=== PATIENT | male | born 1950 | race Caucasian/White ===

== ENCOUNTER 2021-12-25 08:37 | Inpatient (IN) | payer MEDICARE, BC ==
[2021-12-25] MEDS ORDERED: Triamcinolone Acetonide 0.1% Crm 15 GM Tube TOP PRN (14:42)
[2021-12-25] MEDS ORDERED: Glucagon,Human Recombinant 1 MG Vial IM PRN (14:42)
[2021-12-25] MEDS ORDERED: 50% Dextrose in Water 50 ML Syringe IVPUSH PRN (14:42)
[2021-12-25] MEDS ORDERED: Ampicillin/Sulbactam Na 3 GM Vial IV SCH (14:45)
[2021-12-25] MEDS: Sodium Chloride 0.9% 10 ML Syringe FLUSH PRN (16:35)
[2021-12-25] MEDS: Ampicillin/Sulbactam Na 3 GM in Sodium Chloride 0.9% 100 ML IV SCH (16:36)
[2021-12-25] MEDS: Terazosin 1 MG Cap PO SCH (20:35)
[2021-12-25] MEDS: Cyclobenzaprine 10 MG Tab PO PRN (20:36)
[2021-12-25] MEDS: Metoprolol Succinate 50 MG Tab.ER PO SCH (20:36)
[2021-12-25] MEDS: LIDOCAINE PATCH TRDERM SCH (22:00)
[2021-12-25] MEDS: Acetaminophen 500 MG Tab PO PRN (22:30)
[2021-12-26] MEDS: Levothyroxine 100 MCG Tab PO SCH (05:38)
[2021-12-26] MEDS ORDERED: Warfarin Sliding Scale PO SCH (09:00)
[2021-12-26] MEDS ORDERED: Insulin Glargine,Human Rec. Analog 100 Units/ML 3 ML Pen SUBCUT SCH (09:00)
[2021-12-26] MEDS: Metoprolol Succinate 50 MG Tab.ER PO SCH ×2 (09:08→21:23)
[2021-12-26] MEDS: Allopurinol 100 MG Tab PO SCH (09:09)
[2021-12-26] MEDS: Terazosin 1 MG Cap PO SCH ×2 (09:09→21:23)
[2021-12-26] MEDS: Calcitriol 0.25 MCG Cap PO SCH (09:09)
[2021-12-26] MEDS: Ergocalciferol (Vitamin D2) 1.25 MG Cap PO SCH (09:09)
[2021-12-26] MEDS: Bumetanide 2 MG Tab PO SCH (09:09)
[2021-12-26] MEDS: Fluticasone NASAL Spray 16 GM Bottle NASBOTH SCH (09:10)
[2021-12-26] MEDS: Cyclobenzaprine 10 MG Tab PO PRN ×3 (09:12→21:24)
[2021-12-26] MEDS: Lidocaine 4% 1 each Patch TOP SCH (09:15)
[2021-12-26] MEDS: Acetaminophen 500 MG Tab PO PRN ×2 (09:24→16:41)
[2021-12-26] MEDS ORDERED: Insulin Glargine,Human Rec. Analog 100 Units/ML 3 ML Pen SUBCUT ONE (09:32)
[2021-12-26] MEDS: Insulin Glargine,Human Rec. Analog 100 Units/ML 3 ML Pen SUBCUT SCH (09:35)
[2021-12-26] MEDS: traMADol 50 MG Tab PO PRN (11:28)
[2021-12-26] MEDS: Sodium Chloride 0.9% 10 ML Syringe FLUSH PRN ×3 (15:19→16:20)
[2021-12-26] MEDS: Ampicillin/Sulbactam Na 3 GM in Sodium Chloride 0.9% 100 ML IV SCH (15:20)
[2021-12-26] MEDS ORDERED: Warfarin 5 MG Tab PO ONE (16:00)
[2021-12-26] MEDS: LIDOCAINE PATCH TRDERM SCH (21:25)
[2021-12-27] MEDS: Levothyroxine 100 MCG Tab PO SCH (06:03)
[2021-12-27] MEDS: Insulin Glargine,Human Rec. Analog 100 Units/ML 3 ML Pen SUBCUT SCH (09:04)
[2021-12-27] MEDS: Lidocaine 4% 1 each Patch TOP SCH (09:09)
[2021-12-27] MEDS: Fluticasone NASAL Spray 16 GM Bottle NASBOTH SCH (09:10)
[2021-12-27] MEDS: Bumetanide 2 MG Tab PO SCH (09:10)
[2021-12-27] MEDS: Metoprolol Succinate 50 MG Tab.ER PO SCH ×2 (09:11→21:05)
[2021-12-27] MEDS: Terazosin 1 MG Cap PO SCH ×2 (09:11→21:02)
[2021-12-27] MEDS: Calcitriol 0.25 MCG Cap PO SCH (09:12)
[2021-12-27] MEDS: Allopurinol 100 MG Tab PO SCH (09:12)
[2021-12-27] MEDS: traMADol 50 MG Tab PO PRN ×3 (09:13→21:29)
[2021-12-27] MEDS: Cyclobenzaprine 10 MG Tab PO PRN ×2 (09:14→21:09)
[2021-12-27] MEDS: Ampicillin/Sulbactam Na 3 GM in Sodium Chloride 0.9% 100 ML IV SCH (15:30)
[2021-12-27] MEDS: Sodium Chloride 0.9% 10 ML Syringe FLUSH PRN (15:35)
[2021-12-27] MEDS ORDERED: Warfarin 5 MG Tab PO ONE (16:00)
[2021-12-27] MEDS: LIDOCAINE PATCH TRDERM SCH (21:07)
[2021-12-28] MEDS: Levothyroxine 100 MCG Tab PO SCH (06:42)
[2021-12-28] MEDS: Lidocaine 4% 1 each Patch TOP SCH (08:48)
[2021-12-28] MEDS: Insulin Glargine,Human Rec. Analog 100 Units/ML 3 ML Pen SUBCUT SCH (08:49)
[2021-12-28] MEDS: Fluticasone NASAL Spray 16 GM Bottle NASBOTH SCH (08:49)
[2021-12-28] MEDS: Bumetanide 2 MG Tab PO SCH (08:49)
[2021-12-28] MEDS: Terazosin 1 MG Cap PO SCH ×2 (08:49→20:03)
[2021-12-28] MEDS: Metoprolol Succinate 50 MG Tab.ER PO SCH ×2 (08:50→20:03)
[2021-12-28] MEDS: Calcitriol 0.25 MCG Cap PO SCH (08:50)
[2021-12-28] MEDS: Allopurinol 100 MG Tab PO SCH (08:50)
[2021-12-28] MEDS: Cyclobenzaprine 10 MG Tab PO PRN ×2 (09:27→20:49)
[2021-12-28] MEDS: traMADol 50 MG Tab PO PRN (12:55)
[2021-12-28] MEDS: Ampicillin/Sulbactam Na 3 GM in Sodium Chloride 0.9% 100 ML IV SCH (15:03)
[2021-12-28] MEDS ORDERED: Warfarin 5 MG Tab PO ONE (16:00)
[2021-12-28] MEDS: Sodium Chloride 0.9% 10 ML Syringe FLUSH PRN (16:04)
[2021-12-28] MEDS: Acetaminophen 500 MG Tab PO PRN (20:46)
[2021-12-28] MEDS: LIDOCAINE PATCH TRDERM SCH (20:56)
[2021-12-29] MEDS: Levothyroxine 100 MCG Tab PO SCH (06:06)
[2021-12-29] MEDS: Cyclobenzaprine 10 MG Tab PO PRN ×3 (06:37→23:27)
[2021-12-29] MEDS: Metoprolol Succinate 50 MG Tab.ER PO SCH ×2 (09:50→20:11)
[2021-12-29] MEDS: Allopurinol 100 MG Tab PO SCH (09:50)
[2021-12-29] MEDS: Calcitriol 0.25 MCG Cap PO SCH (09:50)
[2021-12-29] MEDS: Terazosin 1 MG Cap PO SCH ×2 (09:50→20:11)
[2021-12-29] MEDS: Bumetanide 2 MG Tab PO SCH (09:50)
[2021-12-29] MEDS: Insulin Glargine,Human Rec. Analog 100 Units/ML 3 ML Pen SUBCUT SCH (09:51)
[2021-12-29] MEDS: Fluticasone NASAL Spray 16 GM Bottle NASBOTH SCH (09:51)
[2021-12-29] MEDS: Lidocaine 4% 1 each Patch TOP SCH (09:51)
[2021-12-29] MEDS: Ampicillin/Sulbactam Na 3 GM in Sodium Chloride 0.9% 100 ML IV SCH (15:20)
[2021-12-29] MEDS: Sodium Chloride 0.9% 10 ML Syringe FLUSH PRN ×2 (15:21→16:32)
[2021-12-29] MEDS ORDERED: Warfarin 5 MG Tab PO SCH (16:00)
[2021-12-29] MEDS: LIDOCAINE PATCH TRDERM SCH (20:45)
[2021-12-29] MEDS: Acetaminophen 500 MG Tab PO PRN (21:23)
[2021-12-30] MEDS: traMADol 50 MG Tab PO PRN (02:03)
[2021-12-30] MEDS: Levothyroxine 100 MCG Tab PO SCH (06:04)
[2021-12-30] MEDS: Acetaminophen 500 MG Tab PO PRN ×2 (08:25→17:19)
[2021-12-30] MEDS: Cyclobenzaprine 10 MG Tab PO PRN ×3 (08:27→23:45)
[2021-12-30] MEDS: Calcitriol 0.25 MCG Cap PO SCH (08:33)
[2021-12-30] MEDS: Bumetanide 2 MG Tab PO SCH (08:33)
[2021-12-30] MEDS: Terazosin 1 MG Cap PO SCH ×2 (08:34→20:59)
[2021-12-30] MEDS: Allopurinol 100 MG Tab PO SCH (08:34)
[2021-12-30] MEDS: Fluticasone NASAL Spray 16 GM Bottle NASBOTH SCH (08:35)
[2021-12-30] MEDS: Metoprolol Succinate 50 MG Tab.ER PO SCH ×2 (08:37→21:02)
[2021-12-30] MEDS: Insulin Glargine,Human Rec. Analog 100 Units/ML 3 ML Pen SUBCUT SCH (08:38)
[2021-12-30] MEDS: Lidocaine 4% 1 each Patch TOP SCH (08:44)
[2021-12-30] MEDS: Ampicillin/Sulbactam Na 3 GM in Sodium Chloride 0.9% 100 ML IV SCH (15:28)
[2021-12-30] MEDS ORDERED: Warfarin 5 MG, Warfarin 2.5 MG PO ONE ×2 (16:00)
[2021-12-30] MEDS: Calcium Acetate 667 MG Cap PO SCH (17:59)
[2021-12-30] MEDS: LIDOCAINE PATCH TRDERM SCH (21:02)
[2021-12-31] MEDS: Levothyroxine 100 MCG Tab PO SCH (06:08)
[2021-12-31] MEDS: Calcium Acetate 667 MG Cap PO SCH ×3 (09:48→17:53)
[2021-12-31] MEDS: Bumetanide 2 MG Tab PO SCH (09:49)
[2021-12-31] MEDS: Metoprolol Succinate 50 MG Tab.ER PO SCH ×2 (09:50→20:40)
[2021-12-31] MEDS: Calcitriol 0.25 MCG Cap PO SCH (09:50)
[2021-12-31] MEDS: Allopurinol 100 MG Tab PO SCH (09:57)
[2021-12-31] MEDS: Fluticasone NASAL Spray 16 GM Bottle NASBOTH SCH (09:57)
[2021-12-31] MEDS: Insulin Glargine,Human Rec. Analog 100 Units/ML 3 ML Pen SUBCUT SCH (09:58)
[2021-12-31] MEDS: Lidocaine 4% 1 each Patch TOP SCH (09:58)
[2021-12-31] MEDS: Terazosin 1 MG Cap PO SCH ×2 (10:05→20:38)
[2021-12-31] MEDS: Acetaminophen 500 MG Tab PO PRN (10:19)
[2021-12-31] MEDS: Cyclobenzaprine 10 MG Tab PO PRN ×2 (10:20→20:37)
[2021-12-31] MEDS: Ampicillin/Sulbactam Na 3 GM in Sodium Chloride 0.9% 100 ML IV SCH (15:30)
[2021-12-31] MEDS: Sodium Chloride 0.9% 10 ML Syringe FLUSH PRN ×2 (15:30→16:30)
[2021-12-31] MEDS ORDERED: Warfarin 5 MG, Warfarin 2.5 MG PO ONE ×2 (16:00)
[2021-12-31] MEDS: LIDOCAINE PATCH TRDERM SCH (20:40)
[2022-01-01] MEDS: Levothyroxine 100 MCG Tab PO SCH (06:21)
[2022-01-01] MEDS: Bumetanide 2 MG Tab PO SCH (09:36)
[2022-01-01] MEDS: Lidocaine 4% 1 each Patch TOP SCH (09:36)
[2022-01-01] MEDS: Fluticasone NASAL Spray 16 GM Bottle NASBOTH SCH (09:36)
[2022-01-01] MEDS: Calcium Acetate 667 MG Cap PO SCH ×3 (09:37→17:37)
[2022-01-01] MEDS: Insulin Glargine,Human Rec. Analog 100 Units/ML 3 ML Pen SUBCUT SCH (09:38)
[2022-01-01] MEDS: Terazosin 1 MG Cap PO SCH ×2 (09:38→20:31)
[2022-01-01] MEDS: Allopurinol 100 MG Tab PO SCH (09:39)
[2022-01-01] MEDS: Calcitriol 0.25 MCG Cap PO SCH (09:39)
[2022-01-01] MEDS: Metoprolol Succinate 50 MG Tab.ER PO SCH ×2 (09:39→20:31)
[2022-01-01] MEDS: Cyclobenzaprine 10 MG Tab PO PRN ×3 (09:40→21:30)
[2022-01-01] MEDS: Sodium Chloride 0.9% 10 ML Syringe FLUSH PRN (15:26)
[2022-01-01] MEDS: Ampicillin/Sulbactam Na 3 GM in Sodium Chloride 0.9% 100 ML IV SCH (15:26)
[2022-01-01] MEDS ORDERED: Warfarin 5 MG Tab PO ONE (16:00)
[2022-01-01] MEDS: LIDOCAINE PATCH TRDERM SCH (21:28)
[2022-01-02] MEDS: traMADol 50 MG Tab PO PRN ×2 (02:05→21:59)
[2022-01-02] MEDS: Levothyroxine 100 MCG Tab PO SCH (06:46)
[2022-01-02] MEDS: Calcitriol 0.25 MCG Cap PO SCH (08:44)
[2022-01-02] MEDS: Terazosin 1 MG Cap PO SCH ×2 (08:44→21:43)
[2022-01-02] MEDS: Bumetanide 2 MG Tab PO SCH (08:44)
[2022-01-02] MEDS: Ergocalciferol (Vitamin D2) 1.25 MG Cap PO SCH (08:44)
[2022-01-02] MEDS: Allopurinol 100 MG Tab PO SCH (08:51)
[2022-01-02] MEDS: Metoprolol Succinate 50 MG Tab.ER PO SCH ×2 (08:51→21:47)
[2022-01-02] MEDS: Cyclobenzaprine 10 MG Tab PO PRN (08:51)
[2022-01-02] MEDS: Acetaminophen 500 MG Tab PO PRN ×2 (08:52→21:57)
[2022-01-02] MEDS: Calcium Acetate 667 MG Cap PO SCH ×3 (09:02→17:47)
[2022-01-02] MEDS: Fluticasone NASAL Spray 16 GM Bottle NASBOTH SCH (09:03)
[2022-01-02] MEDS: Lidocaine 4% 1 each Patch TOP SCH (09:03)
[2022-01-02] MEDS: Insulin Glargine,Human Rec. Analog 100 Units/ML 3 ML Pen SUBCUT SCH (09:05)
[2022-01-02] MEDS: Sodium Chloride 0.9% 10 ML Syringe FLUSH PRN ×2 (15:43→17:07)
[2022-01-02] MEDS: Ampicillin/Sulbactam Na 3 GM in Sodium Chloride 0.9% 100 ML IV SCH (15:43)
[2022-01-02] MEDS ORDERED: Warfarin 5 MG, Warfarin 2.5 MG PO ONE ×2 (16:00)
[2022-01-02] MEDS: LIDOCAINE PATCH TRDERM SCH (21:46)
[2022-01-03] MEDS: Levothyroxine 100 MCG Tab PO SCH (05:03)
[2022-01-03] MEDS: Calcium Acetate 667 MG Cap PO SCH ×3 (09:03→18:57)
[2022-01-03] MEDS: Lidocaine 4% 1 each Patch TOP SCH (09:03)
[2022-01-03] MEDS: Bumetanide 2 MG Tab PO SCH (09:04)
[2022-01-03] MEDS: Fluticasone NASAL Spray 16 GM Bottle NASBOTH SCH (09:04)
[2022-01-03] MEDS: Terazosin 1 MG Cap PO SCH ×2 (09:04→20:38)
[2022-01-03] MEDS: Insulin Glargine,Human Rec. Analog 100 Units/ML 3 ML Pen SUBCUT SCH (09:08)
[2022-01-03] MEDS: Allopurinol 100 MG Tab PO SCH (09:09)
[2022-01-03] MEDS: Metoprolol Succinate 50 MG Tab.ER PO SCH ×2 (09:09→20:39)
[2022-01-03] MEDS: Calcitriol 0.25 MCG Cap PO SCH (09:09)
[2022-01-03] MEDS: predniSONE 20 MG Tab PO SCH (11:40)
[2022-01-03] MEDS: Ampicillin/Sulbactam Na 3 GM in Sodium Chloride 0.9% 100 ML IV SCH (15:30)
[2022-01-03] MEDS: Sodium Chloride 0.9% 10 ML Syringe FLUSH PRN ×2 (15:34→16:37)
[2022-01-03] MEDS ORDERED: Warfarin 5 MG Tab PO ONE (16:00)
[2022-01-03] MEDS: Acetaminophen 500 MG Tab PO PRN (20:39)
[2022-01-03] MEDS: LIDOCAINE PATCH TRDERM SCH (20:39)
[2022-01-03] MEDS: traMADol 50 MG Tab PO PRN (20:40)
[2022-01-04] MEDS: Levothyroxine 100 MCG Tab PO SCH (06:00)
[2022-01-04] MEDS: Calcium Acetate 667 MG Cap PO SCH ×3 (08:52→17:22)
[2022-01-04] MEDS: predniSONE 20 MG Tab PO SCH (08:53)
[2022-01-04] MEDS: Lidocaine 4% 1 each Patch TOP SCH (08:54)
[2022-01-04] MEDS: Fluticasone NASAL Spray 16 GM Bottle NASBOTH SCH (08:54)
[2022-01-04] MEDS: Bumetanide 2 MG Tab PO SCH (08:54)
[2022-01-04] MEDS: Terazosin 1 MG Cap PO SCH ×2 (08:55→20:46)
[2022-01-04] MEDS: Metoprolol Succinate 50 MG Tab.ER PO SCH ×2 (08:56→20:46)
[2022-01-04] MEDS: Calcitriol 0.25 MCG Cap PO SCH (08:56)
[2022-01-04] MEDS: Insulin Glargine,Human Rec. Analog 100 Units/ML 3 ML Pen SUBCUT SCH (08:57)
[2022-01-04] MEDS: Allopurinol 300 MG Tab PO SCH (08:57)
[2022-01-04] MEDS: Acetaminophen 500 MG Tab PO PRN ×2 (08:58→20:51)
[2022-01-04] MEDS: Ampicillin/Sulbactam Na 3 GM in Sodium Chloride 0.9% 100 ML IV SCH (15:38)
[2022-01-04] MEDS ORDERED: Warfarin 5 MG Tab PO ONE (16:00)
[2022-01-04] MEDS: Sodium Chloride 0.9% 10 ML Syringe FLUSH PRN (16:36)
[2022-01-04] MEDS: LIDOCAINE PATCH TRDERM SCH (20:47)
[2022-01-04] MEDS: traMADol 50 MG Tab PO PRN (22:00)
[2022-01-05] MEDS: Levothyroxine 100 MCG Tab PO SCH (05:23)
[2022-01-05] MEDS: Insulin Glargine,Human Rec. Analog 100 Units/ML 3 ML Pen SUBCUT SCH (08:33)
[2022-01-05] MEDS: Lidocaine 4% 1 each Patch TOP SCH (08:34)
[2022-01-05] MEDS: Calcitriol 0.25 MCG Cap PO SCH (08:35)
[2022-01-05] MEDS: Calcium Acetate 667 MG Cap PO SCH ×3 (08:35→17:08)
[2022-01-05] MEDS: Bumetanide 2 MG Tab PO SCH (08:35)
[2022-01-05] MEDS: Terazosin 1 MG Cap PO SCH ×2 (08:35→21:17)
[2022-01-05] MEDS: Fluticasone NASAL Spray 16 GM Bottle NASBOTH SCH (08:36)
[2022-01-05] MEDS: predniSONE 20 MG Tab PO SCH (08:36)
[2022-01-05] MEDS: Allopurinol 300 MG Tab PO SCH (08:36)
[2022-01-05] MEDS: Metoprolol Succinate 50 MG Tab.ER PO SCH ×2 (08:36→21:18)
[2022-01-05] MEDS: traMADol 50 MG Tab PO PRN (08:48)
[2022-01-05] MEDS: Ampicillin/Sulbactam Na 3 GM in Sodium Chloride 0.9% 100 ML IV SCH (14:33)
[2022-01-05] MEDS: Sodium Chloride 0.9% 10 ML Syringe FLUSH PRN (14:34)
[2022-01-05] MEDS ORDERED: Warfarin 5 MG Tab PO ONE (16:00)
[2022-01-05] MEDS: Cyclobenzaprine 10 MG Tab PO PRN (21:18)
[2022-01-05] MEDS: LIDOCAINE PATCH TRDERM SCH (21:18)
[2022-01-05] MEDS: Acetaminophen 500 MG Tab PO PRN (21:19)
[2022-01-06] MEDS: Levothyroxine 100 MCG Tab PO SCH (05:03)
[2022-01-06] MEDS: Calcium Acetate 667 MG Cap PO SCH ×3 (08:28→17:32)
[2022-01-06] MEDS: Terazosin 1 MG Cap PO SCH ×2 (08:29→21:14)
[2022-01-06] MEDS: Calcitriol 0.25 MCG Cap PO SCH (08:29)
[2022-01-06] MEDS: Lidocaine 4% 1 each Patch TOP SCH (08:29)
[2022-01-06] MEDS: Fluticasone NASAL Spray 16 GM Bottle NASBOTH SCH (08:30)
[2022-01-06] MEDS: Metoprolol Succinate 50 MG Tab.ER PO SCH ×2 (08:30→21:15)
[2022-01-06] MEDS: Allopurinol 300 MG Tab PO SCH (08:31)
[2022-01-06] MEDS: Bumetanide 2 MG Tab PO SCH (08:31)
[2022-01-06] MEDS: predniSONE 20 MG Tab PO SCH (08:32)
[2022-01-06] MEDS: Insulin Glargine,Human Rec. Analog 100 Units/ML 3 ML Pen SUBCUT SCH (08:35)
[2022-01-06] MEDS: Acetaminophen 500 MG Tab PO PRN ×2 (12:25→21:18)
[2022-01-06] MEDS ORDERED: Ampicillin/Sulbactam Na 3 GM in Sodium Chloride 0.9% 100 ML IV SCH (13:30)
[2022-01-06] MEDS: Sodium Chloride 0.9% 10 ML Syringe FLUSH PRN ×2 (14:28→15:48)
[2022-01-06] MEDS: Ampicillin/Sulbactam Na 3 GM in Sodium Chloride 0.9% 100 ML IV SCH (14:29)
[2022-01-06] MEDS ORDERED: Warfarin 2.5 MG Tab PO ONE (16:00)
[2022-01-06] MEDS: Cyclobenzaprine 10 MG Tab PO PRN (21:16)
[2022-01-06] MEDS: LIDOCAINE PATCH TRDERM SCH (21:18)
[2022-01-07] MEDS: Levothyroxine 100 MCG Tab PO SCH (06:20)
[2022-01-07] MEDS: Bumetanide 2 MG Tab PO SCH (09:29)
[2022-01-07] MEDS: Terazosin 1 MG Cap PO SCH ×2 (09:30→22:09)
[2022-01-07] MEDS: Calcium Acetate 667 MG Cap PO SCH ×3 (09:30→17:29)
[2022-01-07] MEDS: Metoprolol Succinate 50 MG Tab.ER PO SCH ×2 (09:30→22:08)
[2022-01-07] MEDS: Calcitriol 0.25 MCG Cap PO SCH (09:30)
[2022-01-07] MEDS: Fluticasone NASAL Spray 16 GM Bottle NASBOTH SCH (09:31)
[2022-01-07] MEDS: Lidocaine 4% 1 each Patch TOP SCH (09:31)
[2022-01-07] MEDS: Insulin Glargine,Human Rec. Analog 100 Units/ML 3 ML Pen SUBCUT SCH (09:32)
[2022-01-07] MEDS: predniSONE 20 MG Tab PO SCH (09:32)
[2022-01-07] MEDS: Allopurinol 300 MG Tab PO SCH (09:32)
[2022-01-07] MEDS: Cyclobenzaprine 10 MG Tab PO PRN ×2 (09:33→22:10)
[2022-01-07] MEDS: Sodium Chloride 0.9% 10 ML Syringe FLUSH PRN (12:40)
[2022-01-07] MEDS ORDERED: Ampicillin/Sulbactam Na 3 GM in Sodium Chloride 0.9% 100 ML IV SCH (13:00)
[2022-01-07] MEDS ORDERED: Warfarin 5 MG, Warfarin 2.5 MG PO SCH ×2 (16:00)
[2022-01-07] MEDS: LIDOCAINE PATCH TRDERM SCH (22:09)
[2022-01-08] MEDS: Acetaminophen 500 MG Tab PO PRN (06:47)
[2022-01-08] MEDS: Cyclobenzaprine 10 MG Tab PO PRN (06:48)
[2022-01-08] MEDS: Levothyroxine 100 MCG Tab PO SCH (06:48)
[2022-01-08] MEDS: Calcium Acetate 667 MG Cap PO SCH ×2 (08:26→11:00)
[2022-01-08] MEDS: Lidocaine 4% 1 each Patch TOP SCH (08:26)
[2022-01-08] MEDS: Allopurinol 300 MG Tab PO SCH (08:26)
[2022-01-08] MEDS: Calcitriol 0.25 MCG Cap PO SCH (08:27)
[2022-01-08] MEDS: Metoprolol Succinate 50 MG Tab.ER PO SCH (08:27)
[2022-01-08] MEDS: Terazosin 1 MG Cap PO SCH (08:27)
[2022-01-08] MEDS: Insulin Glargine,Human Rec. Analog 100 Units/ML 3 ML Pen SUBCUT SCH (08:27)
[2022-01-08] MEDS: Fluticasone NASAL Spray 16 GM Bottle NASBOTH SCH (08:27)
[2022-01-08] MEDS: Bumetanide 2 MG Tab PO SCH (08:27)
[2022-01-08] MEDS ORDERED: Nystatin Topical Powder 15 GM Bottle TOP SCH (10:15)
[2022-01-08] MEDS ORDERED: Ampicillin/Sulbactam Na 3 GM in Sodium Chloride 0.9% 100 ML IV SCH (11:00)
[2022-01-10] MEDS ORDERED: Warfarin 5 MG Tab PO SCH (16:00)
== END 2022-01-08 14:35 | disposition home or self-care (01) | DRG 947 ==
LOC: FB.MS 13:23
PROVIDERS: ADMIT Family Medicine; ATTEND Family Medicine
DX: R53.1 Weakness (principal); I21.A1 Myocardial infarction type 2; R78.81 Bacteremia; N18.5 Chronic kidney disease, stage 5; Z68.42 Body mass index [BMI] 45.0-49.9, adult; B95.2 Enterococcus as the cause of diseases classified elsewhere; M62.830 Muscle spasm of back; I48.0 Paroxysmal atrial fibrillation; E11.22 Type 2 diabetes mellitus with diabetic chronic kidney disease; M10.9 Gout, unspecified; I50.9 Heart failure, unspecified; I25.10 Atherosclerotic heart disease of native coronary artery without angina pectoris; E03.9 Hypothyroidism, unspecified; E66.01 Morbid (severe) obesity due to excess calories; Z88.8 Allergy status to other drugs, medicaments and biological substances; Z79.4 Long term (current) use of insulin; Z79.01 Long term (current) use of anticoagulants; Z79.899 Other long term (current) drug therapy
CPT/HCPCS: 36415; 80069; 82550; 82947; 83735; 84450; 84550; 85025; 85610; 85651; 86140; 97032-GO; 97110-GO; 97110-GP; 97116-GP; 97140-GO; 97140-GP; 97161-GP; 97166-GO; 97530-GO; 97535-GO; A9270-GY; G0283-GO; J0295; J1642; J1815-GY; J3490; J7512